=== PATIENT | male | born 1980 | race Caucasian/White ===

== ENCOUNTER 2017-06-17 13:33 | Emergency (ER) | payer SELFPAY ==
[2017-06-17] MEDS ORDERED: HYDROcodone/Acetaminophen 10/325 mg Tablet ONE (14:18)
--- NOTE | 2017-06-17 15:40 | RAD ---
RIGHT KNEE RADIOGRAPHS FOUR VIEWS: 06/17/17 PROVIDED CLINICAL HISTORY: Right leg pain status post injury. FINDINGS: There is a nondisplaced fracture involves the lateral margin of the lateral tibial plateau. Calcifica tion projecting medial to the medial aspect of the tibial eminence on the frontal view could also ref lect an avulsion injury from the eminence. There is a large knee joint effusion. Alignment appears an atomic. Joint spaces appear preserved. IMPRESSION: Nondisplaced fracture involving the lateral tibial plateau which may reflect a Segond variant and giv en the eminence calcification may refect coexistent ACL injury. Associated large knee joint effusion. POS: EMILY
== END 2017-06-17 15:29 | disposition home or self-care (01) ==
LOC: ERS 13:33
DX: S82.144A Nondisplaced bicondylar fracture of right tibia, initial encounter for closed fracture (principal); F17.210 Nicotine dependence, cigarettes, uncomplicated; W22.8XXA Striking against or struck by other objects, initial encounter; Y93.44 Activity, trampolining; Y92.831 Amusement park as the place of occurrence of the external cause